=== PATIENT | female | born 1980 | race African-American/Black ===

== ENCOUNTER 2023-09-17 06:45 | Inpatient (IN) | payer BC, SELFPAY ==
[2023-09-17] VITALS (38 sets, daily range): BP systolic 65–118; BP diastolic 30–101; BMI 24.6; BMI 22.7
--- NOTE | 2023-09-17 05:47 | ED.GENMED ---
History of Present Illness
General
Chief Complaint: Fainting/Passed Out
Source: patient and ambulance crew
Exam Limitations: none
Time Seen by Provider: 09/17/23 05:26
Travel History
Have you had any contact with someone who has COVID-19?: No
Do you have any symptoms of coronavirus? Fever > 100 degrees, chills, cough, shortness of breath, sore throat, loss of taste or smell, muscle aches, or headache?: No
History of Present Illness
History of Present Illness:
43-year-old female with a history of lung cancer and idiopathic pulmonary hypertension who presents after she was noted to be hypotensive at home. Patient states that she takes her Remodulin every 72 hours via pump. He states that she suspects her
last dose the tubing was broken and she did not get a full dose. She is then supposed to titrate up but took her regular dose today and feels like she is titrating up and her symptoms are related. She has had diarrhea and hypotension. She also
had nausea which all are consistent with her symptoms related to taking her Remodulin. Patient denies chest pain, denies fevers, denies hemoptysis, denies leg swelling. She states she does not feel terribly short of breath
Past History
Past History
ED Past Medical History: Cancer (Lung cancer) and Other (Seasonal allergies, dextrocardia, idiopathic pulmonary hypertension)
ED Past Surgical History: Other (Right pneumonectomy October 2012)
Social History
Tobacco: Non-smoker
Alcohol: None
Drug: None
Personal:
Living: with family
Employment: Employed
Family History
Family History: Hypertension
Phy Exam
Physical Exam
Physical Exam:
CONSTITUTIONAL Patient alert and oriented to person, place and time.. Vital signs reviewed.
HEAD atraumatic, normocephalic.
EYES eyelids normal to inspection, Pupils equally round and reactive to light, Extraocular muscles intact, Conjunctiva normal, Sclera normal.
NECK normal range of motion, Trachea midline, mild jugular venous distention.
RESPIRATORY CHEST No respiratory distress noted, Chest expansion equal, Bilateral breath sounds clear.
CARDIOVASCULAR regular and tachycardic
ABDOMEN abdomen nontender, Bowel sounds normal. No distention.
BACK normal inspection, no obvious deformities
UPPER EXTREMITY range of motion normal, Motor strength normal, no cyanosis, no edema.
LOWER EXTREMITY range of motion normal, Motor strength normal, no cyanosis, no edema.
NEURO Speech normal, No focal motor deficits, [place] coma scale 15, Memory normal, Cranial Nerves intact to screening exam.
SKIN skin warm, dry, and normal in color.
PSYCHIATRIC patient oriented to person place and time, Normal affect.
Course
Orders/Labs/Results
Orders:
Orders
09/17/23 05:20
Electrocardiogram (*1) Urgent
Reason for Study: Other
Other Reason for Exam: Respiratory Distress
Cardiac Monitoring- Treatment ONCE
EKG- Treatment ONCE
IV Insert/Care/Rem.- Treatment PRN
O2 Therapy [RESP] Urgent
Titrate/Wean O2 to maintain O2 sat greater than (%): 93
Special Instructions: TO MAINTAIN CONTINUOUS O2 SATS >/= 93%
Pulse Ox/cont/shift [RESP] Urgent
Quantity: 1
Special Instructions: continuous pulse ox
09/17/23 05:40
COVID-19 Antigen Urgent
Source: Nasal Swab
Complete Blood Count/With Diff Urgent
Comprehensive Metabolic Panel Urgent
NT-proBNP Urgent
Troponin I Urgent
Influenza A+B Rapid Molecular Urgent
NELL Source: Nasal Swab
Specimen Description:
09/17/23 05:42
0.9% Sodium Chloride 500 ml [Nss] 500 ml IV BOLUS
Chest [CR Chest - 2 Views ] Stat
Comment:
Reason For Exam: sob
09/17/23 06:05
Urinalysis Reflex To Culture Urgent
09/17/23 06:10
Lactic Acid Q4H
Comment: CANCEL 2nd LACTIC ACID IF 1st LACTIC ACID IS LESS THAN 2
Blood Culture Q30M
NELL Source: Blood/Venous
Specimen Description:
Blood Culture Q30M
NELL Source: Blood/Venous
Specimen Description:
09/17/23 06:12
0.9% Sodium Chloride 1000 ml [Nss] 1,000 ml IV BOLUS
09/17/23 06:13
Potassium Chloride [KCl] 40 meq Dextrose 5%/Water 250 ml [D5w] 250 ml IV NOW
09/17/23 06:29
Admit/Transfer Patient As Directed
Co-Sign Provider:
Level of Care: Inpatient admission
Assign to:: ICU
Physician / Group: emiry
Diagnosis: Acute viral Covid /JAMES/ SIRS picture eval for sespis/ Hypokalemia/ N/D
Reason for Hospitalization: Acute viral Covid /JAMES/ SIRS picture eval for sespis/ Hypokalemia/ N/D
Expected length of stay greater than two midnights?: Yes
ELOS- Estimated Length of Stay in days: 5
I certify the patient meets the requirements for IP care: Yes
09/17/23 06:32
Code Status As Directed
Resuscitation Status: Full Code
09/17/23 07:00
Potassium Chloride [KCl] 40 meq Dextrose 5%/Water 250 ml [D5w] 250 ml IV ONCE
09/17/23 10:15
Lactic Acid Q4H
Comment: CANCEL 2nd LACTIC ACID IF 1st LACTIC ACID IS LESS THAN 2
Abnormal Lab Results
09/17/23
05:40
WBC 14.4 H 10^3/uL
(4.8-10.8)
RBC 3.79 L 10^6/uL
(4.20-5.40)
Hct 35.4 L %
(37.0-47.0)
MCH 33.2 H pg
(27.0-31.0)
RDW 14.7 H %
(11.5-14.5)
Plt Count 113 L 10^3/uL
(130-400)
MPV 11.7 H fL
(7.4-10.4)
Abs Immat Gran (auto) 0.1 H 10^3/uL
(0-0.05)
Absolute Neuts (auto) 12.9 H 10^3/uL
(1.4-6.5)
Absolute Lymphs (auto) 0.6 L 10^3/uL
(1.2-3.4)
Absolute Monos (auto) 0.7 H 10^3/uL
(0.1-0.6)
Neutrophils % 89.9 H %
(42.2-75.2)
Lymphocytes % 4.5 L %
(20.5-51.1)
Sodium 130 L mmol/L
(135-145)
Potassium 3.3 L mmol/L
(3.5-5.1)
Carbon Dioxide 16 L mmol/L
(22-30)
BUN 56 H mg/dl
(7-17)
Creatinine 2.9 H mg/dL
(0.6-1.0)
Glucose 122 H mg/dl
(70-99)
Calcium 8.1 L mg/dl
(8.4-10.2)
Total Bilirubin 6.8 H mg/dl
(0.2-1.3)
Total Protein 6.1 L g/dl
(6.3-8.2)
SARS-CoV-2 Antigen Positive A
(Negative)
09/17/23 05:40
09/17/23 05:40
Vital Signs
Initial and Last Documented VS:
Initial Vital Signs
BP
118/101
09/17/23 05:17
Last Documented Vital Signs
Temp Pulse Resp BP Pulse Ox
97.2 F 114 32 91/60 96
09/17/23 06:10 09/17/23 06:30 09/17/23 06:30 09/17/23 06:30 09/17/23 06:30
MDM/Problems Addressed
MDM/Problems Addressed:
Pulmonary hypertension, Remodulin use, COVID 19, acute renal failure
Acute Exacerbation and/or Progression of Chronic Illness: Other (pulm HTN)
*Pulse Oximetry
Patient hypoxic: no
*EKG
Interpreted by ED Provider?: Yes
Interpretation: abnormal
Rate: tachycardiac
Rhythm: sinus
Ischemia: non-specific ST changes
*Wire Winding Machine Tender Interpretation
Rate: tachycardiac
Interpretation: abnormal
Rhythm: sinus
*Critical Care Note
Total Time (30-74mins, 75-104mins- exclusive of procedures): 40 minutes
Data Reviewed
Review of Other/Old Records Reveals: Progress Notes (2016 cardiology notes reviewed) and Discharge Summary (2016 discharge summary reviewed)
Source: patient and ambulance crew
Further Testing Considered But Not Given:
Consider CTA but suspect result of Remodulin use. Continue to monitor. Check chest x-ray
Patient Management
Discussion with other providers: Rn Perioperative (pulmonology)
Escalation/DeEscalation of care consider admission/obs:
Patient is quite ill-appearing. Tachypneic. Chest x-ray to my view appears to have some interstitial changes that may be COVID versus volume. BNP noted. Blood pressure now 90s but has been a little bit hypotensive likely related to Remodulin.
Case discussed with pulmonary critical care. Agrees with management thus far. Hospitalist to cover with antibiotics. Trial high flow. Pulmonology to evaluate. renal failure appears acute
ED Attending Note
-
Portions of this chart may have been created with voice recognition software.� Occasional wrong word or��sound alike� substitutions may have occurred due to the inherent limitations of voice recognition software.
Discharge Plan
Departure
Patient Disposition: Admit
Date of Disposition: 09/17/23
Time of Disposition: 06:43
Admit to: ICU
Presentation/result/management discussed w/ accepting MD/DO: Hospitalist
Discharge Problem:
Acute renal failure, COVID-19, Pulmonary hypertension, Acute hypotension
Prescriptions:
No Action
alprazolam 0.25 MG tablet
0.25 mg PO Q6HPRN PRN (Reason: ANXIETY) Qty: 10 0RF
pantoprazole 40 MG tablet,delayed release (DR/EC)
40 mg PO DAILY Qty: 30 0RF
oseltamivir 75 MG capsule
75 mg PO BID Qty: 2 0RF
ipratropium bromide 0.5 MG/2.5 ML solution
0.5 mg inhalation R Q4HPRN PRN (Reason: SHORTNESS OF BREATH/WHEEZING) Qty: 30 0RF
L.acid,para-B.bifidum-S.therm [RisaQuad] 1 CAP capsule
1 cap PO DAILY Qty: 30 0RF
prednisone 10 MG tablet
10 mg PO .TAPER Qty: 22 0RF
Rx Instructions:
Take 40mg daily x1days, 30mg daily x3days, 20mg daily x3days, 10mg daily x3days.
doxycycline hyclate 100 MG capsule
100 mg PO Q12 Qty: 10 0RF
cefuroxime axetil 500 MG tablet
500 mg PO BID Qty: 10 0RF
Referrals:
UNKNOWN - PT NOT,INTERVIEWE [Unknown Provider] -
Interventions
Interventions:
*Risk Screen - Suicide Last Done: 09/17/23 05:20
*General Assessment Last Done: 09/17/23 05:20
*Neglect/Abuse Screening Last Done: 09/17/23 05:20
ED- Fall Risk Assessment Last Done: 09/17/23 05:46
ED- Cardiac Assessment Last Done: 09/17/23 05:46
ED- Neurological Assessment Last Done: 09/17/23 05:46
[2023-09-17] MEDS: NSS 500 IV (05:49)
[2023-09-17 05:54] LABS: % Basophils 0.1 % (0-2); % Immature Granulocytes 0.5 % (0-0.5); % Lymphocytes 4.5 % (20.5-51.1); % Neutrophils 89.9 % (42.2-75.2); Absolute Immature Granulocytes 0.1 10^3/uL (0-0.05); Absolute Lymphocytes 0.6 10^3/uL (1.2-3.4); Absolute Monocytes 0.7 10^3/uL (0.1-0.6); Absolute Neutrophils 12.9 10^3/uL (1.4-6.5); Hematocrit 35.4 % (37.0-47.0); Hemoglobin 12.6 g/dL (12.0-16.0); Mean Corp Hgb Conc. 35.6 g/dL (33.0-37.0); Mean Corpuscular Hgb 33.2 pg (27.0-31.0); Mean Corpuscular Volume 93.4 fL (81.0-99.0); Mean Platelet Volume 11.7 fL (7.4-10.4); Nucleated Red Blood Cells % 0.6 %; Platelet Count 113 10^3/uL (130-400); Red Blood Cell Count 3.79 10^6/uL (4.20-5.40); Red Cell Dist. Width 14.7 % (11.5-14.5); White Blood Cell Count 14.4 10^3/uL (4.8-10.8)
[2023-09-17 06:02] LABS: Albumin 3.5 g/dl (3.5-5.0); Alkaline Phosphatase 113 U/L (38-126); Blood Urea Nitrogen 56 mg/dl (7-17); Calcium 8.1 mg/dl (8.4-10.2); Carbon Dioxide 16 mmol/L (22-30); Chloride 98 mmol/L (98-107); Estimated Creatinine Clearance 17 ml/min; Glucose 122 mg/dl (70-99); Potassium 3.3 mmol/L (3.5-5.1); Sodium 130 mmol/L (135-145); Total Bilirubin 6.8 mg/dl (0.2-1.3); Total Protein 6.1 g/dl (6.3-8.2); eGFR 19.73
[2023-09-17 06:06] LABS: COVID-19 Antigen Positive (Negative)
[2023-09-17 06:14] LABS: NT-proBNP 9650 pg/ml; Troponin I < 0.012 ng/ml
--- NOTE | 2023-09-17 06:25 | HPS.HSE ---
Addendum entered and electronically signed by Shoaib Trotter MD 09/17/23 18:51:
Correction:
SIRS like picture - evolving sepsis with shock
- BCx
- Empiric Vanco and <del>Zosyn</del> Cefepime
Addendum entered and electronically signed by Shoaib Trotter MD 09/17/23 12:01:
CXR final report
- Stable pneumonectomy change in the right hemithorax.
- Progressing pulmonary edema and/or interstitial pneumonitis in the left lung. Improvement in confluent left lower lobe pneumonia.
Original Note:
Family Physician
-
Family Physician:
Chief Complaint
-
Low BP at home
History of Present Illness
43F HX lung cancer and idiopathic pulmonary hypertensionevalaution for hypotensive at home.
Patient states that she takes her Remodulin every 72 hours via pump. He states that she suspects her last dose the tubing was broken and she did not get a full dose. She is then supposed to titrate up but took her regular dose today and feels like
she is titrating up and her symptoms are related. She has had diarrhea and hypotension. She also had nausea which all are consistent with her symptoms related to taking her Remodulin.
ROS
Patient denies chest pain, denies fevers, denies hemoptysis, denies leg swelling. She states she does not feel terribly short of breath
Medical History
Past Medical History
Past Medical History: Reports Other
Additional Past Medical History:
Cancer (Lung cancer) and Other (Seasonal allergies, dextrocardia, idiopathic pulmonary hypertension)
Past Surgical History: Reports Other
Additional Past Surgical History:
Right pneumonectomy October 2012)
Social History
Tobacco: Non-smoker
Alcohol: None
Drug: None
Personal:
Living: With Family
Family History
Family History: Not pertinent
Allergies / Home Medications
Allergies reflects when Allergies were last updated in [employer].
Home Medications with original date entered in [employer]
Allergy/Medication List:
Allergies
Allergy/AdvReac Type Severity Reaction Status Date / Time
ondansetron [From Zofran] Allergy Unknown Verified 09/17/23 05:38
[place] Allergy Anaphylaxis Uncoded 11/10/15 11:37
[place] Allergy Anaphylaxis Uncoded 11/10/15 11:37
Home Medications
L.acidophilus-L.paracasei-B.bifidum-S.thermophl 8 billion cell capsule (RisaQuad) 1 cap PO DAILY ##30 11/14/15
alprazolam 0.25 mg tablet 0.25 mg PO Q6HPRN PRN ANXIETY ##10 11/14/15
cefuroxime axetil 500 mg tablet 500 mg PO BID #10 tabs 11/14/15
doxycycline hyclate 100 mg capsule 100 mg PO Q12 #10 caps 11/14/15
ipratropium bromide 0.02 % solution for inhalation 0.5 mg (2.5 mL) inhalation R Q4HPRN PRN SHORTNESS OF BREATH/WHEEZING ##30 11/14/15
oseltamivir 75 mg capsule 75 mg PO BID ##2 11/14/15
pantoprazole 40 mg tablet,delayed release 40 mg PO DAILY ##30 11/14/15
prednisone 10 mg tablet 10 mg PO .TAPER #22 tabs 11/14/15
Review of Systems
-
Constitutional: Reports See HPI
EENT: Reports No Symptoms
Respiratory: Reports See HPI
Cardiac: Reports No Symptoms
Abdomen/GI: Reports No Symptoms
: Reports No Symptoms
Musculoskeletal: Reports No Symptoms
Skin: Reports No Symptoms
Neurological: Reports No Symptoms
Endocrine: Reports No Symptoms
Hematologic/Lymphatic: Reports No Symptoms
Psych: Reports No Symptoms
Physical Exam
Vital Signs
Vital Signs
Temp Pulse Resp BP Pulse Ox
97.2 F 114 28 72/42 94
09/17/23 06:10 09/17/23 06:01 09/17/23 06:01 09/17/23 06:01 09/17/23 06:01
Physical Exam
General: Other (see below )
Laboratory Results
-
09/17/23 05:40
09/17/23 05:40
Laboratory Results
Total Bilirubin 6.8 mg/dl (0.2-1.3) H 09/17/23 05:40
Alkaline Phosphatase 113 U/L (38-126) 09/17/23 05:40
Troponin I < 0.012 ng/ml 09/17/23 05:40
Data Reviewed
-
Diagnostic Radiology: Other (pending )
Lab Data: Labs Reviewed by me
Impression/Plan
-
Reviewed VS: afebrile ST 115 BP 75/40 RR 28 POx 92- 94 0n RA
PE
Gen: Not toxic
HEENT: anicteric
Neck: supple
Lungs: No respiratory distress noted, Chest expansion equal, Bilateral breath sounds clear.
Cor: RRR S1 S2
Abdomen: soft and benign
[employer] TRUCK DRIVER: AAO3 NFND
MS: no edema
Psych: appropriate
Data
WCC 14s
Plt 113
Na 130
K 3.3
CO2 16
BUN 56
Cr 2.9 lastt Cr was 0.7 in 2016
Pending LA
POS Covid
Pending CXR
EKG
SINUS TACHYCARDIA
LATERAL INFARCT , AGE UNDETERMINED
ST and T WAVE ABNORMALITY, CONSIDER INFERIOR ISCHEMIA
ST and T WAVE ABNORMALITY, CONSIDER ANTERIOR ISCHEMIA
ABNORMAL ECG
WHEN COMPARED WITH ECG OF 14-NOV-2015 16:01,
VENT. RATE HAS INCREASED BY 37 BPM
LATERAL INFARCT IS NOW PRESENT
T WAVE INVERSION NOW EVIDENT IN INFERIOR LEADS
T WAVE INVERSION NOW EVIDENT IN ANTEROLATERAL LEADS
Last hospitalist admission: no recent hospitalist admission
ASSESSMENT & PLAN
Pending CXR
Pending Rx reconciliation
Acute viral Covid infection - onset is uncertain
Associated mild Hypoxic RI
Associated SIRs picture
- pending CXR
- Empiric Decadron
- O2
- supportive care
- ID consult
JAMES
Hypotensive - dehydration 2/2 acute GE like illness ( ADES of Remulin vs acute viral illnes )
Hypokalemia 2/2 GI loss s/p IV KCL 40 + PO KCL
- IVF
- IV KCL ashley
- Trend Cr
- Renal consult
SIRS likel picture - evolving sepsis with shock
- BCx
- Empiric Vanco and Zosyn
- LR IVF
- Toolmaker Helper consult
HX lung cancer
HX idiopathic pulmonary hypertension
Total Critical Care Time__35___ minutes. I was immediately available to the patient and staff. I personally examined, reviewed labs, diagnostic images/reports, interpretations, treatment plans, discussed patient care with other providers and
family or caregivers (if patient is unable to make decisions), entered orders as appropriate and documented the medical record.
[2023-09-17 06:29] LABS: Lactic Acid 1.6 mmol/L (0.7-2.0)
[2023-09-17] MEDS: KCL 270 MEQ IV (06:38)
[2023-09-17 06:44] LABS: ALT (SGPT) 3070 U/L (0-35); AST (SGOT) 6029 U/L (14-36)
[2023-09-17] MEDS: LEVOPHED 250 IV (08:28)
--- NOTE | 2023-09-17 08:52 | CON.GI ---
Addendum entered and electronically signed by Yazmin Gutierrez MD 09/17/23 14:16:
I saw and examined the patient.
The STREET CONTRACTOR or PA's note was reviewed and I agree with the note.
Comment: 43-year-old female past medical history of lung cancer status postpneumonectomy, pulmonary hypertension on Remodulin infusion presenting with COVID. She was hypotensive at home with diarrhea, nausea. No abdominal pain. She has remained
hypotensive here requiring pressors. She was found to have profoundly elevated LFTs with AST 6029, ALT 3070, total bilirubin 6.8, direct bilirubin 1.6, INR 3.68, platelets 113. I ordered a Doppler ultrasound this morning which showed patent
hepatic vasculature with altered pulsatility/flow may be related to chronic liver disease and right heart failure. Increased echogenicity in the liver likely fatty liver. Upper abdominal ascites. On discussion with the patient, she is on
diuretics for known ascites for her right heart failure.
Most likely, with such severe elevation of her AST and ALT this is consistent with shock liver especially in the setting of hypotension. Her bilirubin is mostly indirect consistent with hemolysis. Elevated coags also most likely related to her
underlying sepsis. I discussed at length with the on-call solution engineer at [facility] and he did say in the setting there is no role for N-acetylcysteine. He agreed there is also no role in doing a full liver workup as this is
unlikely to be some other etiology besides her underlying sepsis especially given the severity of her AST and ALT elevation.
I have discussed at length as well with Dr. Dangelo hospitalist. Due to multiorgan failure in the setting of COVID with her severe comorbidities, she is being transferred to [facility] ICU.
Original Note:
Consultation
-
Date/Time Consultation Requested: 09/17/23
Date/Time Consultation Performed: 09/17/23 @ 09:00
Requesting Provider: Dr. Dangelo
Performing Provider: RUSTY Ivy; Dr. Nishi Gutierrez
Reason for Consultation: abnormal LFT's
Medical History
Chief Complaint / HPI
Chief Complaint: low BP at home
History of Present Illness:
The patient is a 43-year-old female with a past medical history significant for lung cancer status post right pneumonectomy 2012, idiopathic pulmonary hypertension on Remodulin infusion (follows at [facility]), who presented to the emergency room with
complaints of a low blood pressure at home. We are being asked to evaluate for abnormal LFT's. The patient reports feeling generally unwell leading up to her admission. She notes that she was having episodes of nonbloody diarrhea associated with
nausea. She was also noted to have low blood pressure at home. She is on a Remodulin infusion via an indwelling pump and reported in the ER that she thought her symptoms were possibly related to her medication due to adjustments of the dosage.
She denies any abdominal pain or vomiting. She does note increased shortness of breath but denies any chest pain. She otherwise denies any dysphagia, odynophagia, melena, hematochezia, or hematemesis. She notes she does follow with [facility] for her
pulmonary hypertension. She also admits to history of lung cancer with right pneumonectomy. She denies any history of hepatitis, IV drug abuse, significant alcohol use, sick contacts, or recent travel. She does admit to history of tattoos
remotely. She has no known exposures to COVID. No pertinent family history related to her current admission. Labs on admission include WBC 14.4, hemoglobin 12.6, platelets 113,000, sodium 130, potassium 3.3, sodium HCO3 16, BUN 56, creatinine 2.9,
total bilirubin 6.8, AST 6029, ALT 3070, alk phos 113, lactic acid 1.6, BNP 9650, troponin negative x 1. COVID antigen was positive. Chest x-ray showed stable pneumonectomy changes with progressing pulmonary edema and/or interstitial pneumonitis
in the left lung. EKG showed sinus tachycardia with signs of lateral infarct age-indeterminate with ST and T wave abnormality. She was placed on supplemental oxygen and started on IV Decadron. She received fluid bolus and potassium repletion as
well and nephrology was consulted for JAMES. She has admitted for further evaluation to the ICU by pulmonary and GI. She was seen in the ICU with Dr. Protano. Noted with significant hypotension SBP 60's and tachycardia 110's. Levophed drip was
ordered. INR elevated at 3.68.
Past Medical History
Past Medical History: Cancer (Lung CA) and Other (pulmonary HTN)
Past Surgical History: Other (Right pneumonectomy October 2012)
Social History
Tobacco: Non-Smoker
Alcohol: Other (Very rare once every few months)
Drug: None
Family History
Family History: Reviewed & Not Pertinent
Allergies / Home Medications
Allergy/AdvReac Type Severity Reaction Status Date / Time
ondansetron [From Zofran] Allergy Unknown Verified 09/17/23 05:38
[place] Allergy Anaphylaxis Uncoded 11/10/15 11:37
[place] Allergy Anaphylaxis Uncoded 11/10/15 11:37
Medication Instructions Recorded
bismuth subsalicylate 262 mg 1 tab PO ONCE PRN diarrhea 09/17/23
chewable tablet (Pepto-Bismol)
ferrous sulfate 325 mg (65 mg 325 mg PO DAILY 09/17/23
iron) tablet
macitentan 10 mg tablet 10 mg PO DAILY 09/17/23
magnesium 200 mg tablet 200 mg PO DAILY 09/17/23
multivitamin 1 tab 09/17/23
potassium chloride 20 mEq 20 meq PO DAILY 09/17/23
tablet,extended release
sildenafil (pulm.hypertension) 20 20 mg PO TID 09/17/23
mg tablet
spironolactone 25 mg tablet 25 mg PO DAILY 09/17/23
torsemide 20 mg tablet 20 mg PO DAILY 09/17/23
treprostinil sodium 10 mg/mL 20 mg continuous subcutaneous 09/17/23
injection solution infusion
vehicle base no.15 (bulk) (PLO 1 applic miscellaneous TID PRN pain 09/17/23
Transdermal cream)
Review of Systems
-
History Source: Patient
Constitutional: Reports Fatigue
EENT: Reports No Symptoms
Respiratory: Reports Trouble Breathing
Cardiac: Reports No Symptoms
Abdomen/GI: Reports Nausea and Diarrhea
: Reports No Symptoms
Musculoskeletal: Reports No Symptoms
Skin: Reports No Symptoms
Neurological: Reports No Symptoms
Vital Signs
Temp Pulse Resp BP Pulse Ox
97.2 F 115 0 77/58 94
09/17/23 06:10 09/17/23 08:30 09/17/23 08:30 09/17/23 08:24 09/17/23 08:30
Physical Exam
Exam
General: Well Developed, Well Nourished, Respiratory Distress and Other (Ill-appearing, with mild increase work of breathing)
HEENT: Normocephalic, Anicteric and Atraumatic
Respiratory: Other (Overall diminished breath sounds without any wheezing, increased work of breathing)
Cardiac: S1/S2 and Regular Rhythm
Breast: Deferred by me
GI: Soft, Non Tender, Non Distended and Normal Bowel Sounds
Rectal: Deferred by Provider
Musculoskeletal: No Edema
Skin: Warm and Dry
Neuro: Awake and Alert
Psych: Calm
Results
WBC 14.4 10^3/uL (4.8-10.8) H 09/17/23 05:40
Hgb 12.6 g/dL (12.0-16.0) 09/17/23 05:40
Hct 35.4 % (37.0-47.0) L 09/17/23 05:40
MCV 93.4 fL (81.0-99.0) 09/17/23 05:40
Plt Count 113 10^3/uL (130-400) L 09/17/23 05:40
Absolute Neuts (auto) 12.9 10^3/uL (1.4-6.5) H 09/17/23 05:40
Sodium 130 mmol/L (135-145) L 09/17/23 05:40
Potassium 3.3 mmol/L (3.5-5.1) L 09/17/23 05:40
Chloride 98 mmol/L (98-107) 09/17/23 05:40
Carbon Dioxide 16 mmol/L (22-30) L 09/17/23 05:40
BUN 56 mg/dl (7-17) H 09/17/23 05:40
Creatinine 2.9 mg/dL (0.6-1.0) H 09/17/23 05:40
Calcium 8.1 mg/dl (8.4-10.2) L 09/17/23 05:40
Total Bilirubin 6.8 mg/dl (0.2-1.3) H 09/17/23 05:40
AST 6029 U/L (14-36) H* 09/17/23 05:40
ALT 3070 U/L (0-35) H* 09/17/23 05:40
Alkaline Phosphatase 113 U/L (38-126) 09/17/23 05:40
Diagnostic Image Results:
09/17/23 CXR: IMPRESSION:
Stable pneumonectomy change in the right hemithorax. Progressing pulmonary edema and/or interstitial pneumonitis in the left lung. Improvement in confluent left lower lobe pneumonia.
09/17/23 US abdomen with Doppler:
IMPRESSION:
1. Patent hepatic vasculature with some altered pulsatility/flow, as described above. Findings may be secondary to combination of chronic liver disease and right heart failure.
2. Increased echogenicity in the liver, compatible with underlying hepatocellular disease, which most commonly relates to fatty infiltration of the liver.
3. Upper abdominal ascites.
Prior GI Procedures:
EGD: none on file
Colonoscopy: none on file
Assessment / Plan
-
The patient is a 43-year-old female with a past medical history significant for lung cancer status post right pneumonectomy 2012, idiopathic pulmonary hypertension on Remodulin, who presented to the emergency room with complaints of a low blood
pressure at home. We are being asked to evaluate for abnormal LFT's. Found to be COVID-positive on admission with hypoxia. Presented with diarrhea and mild shortness of breath associated with other viral symptoms including nausea. No known
exposures. Significant lab abnormalities consistent with shock state with acute kidney injury and AST in the 6000's and ALT in the 3000's. No reported history of liver disease. She does follow at [facility] for her idiopathic pulmonary hypertension on
her module and infusion every 3 days. Significantly hypotensive and tachycardic upon arrival to the ICU. Levophed drip ordered. She does appear in moderate respiratory distress. Ultrasound with Doppler does not show any significant obstructive
process with patent hepatic vasculature.
Problem list:
-abnormal LFT's, ?shock liver
-COVID+, hypoxia
-septic shock, hypotension
-JAMES
-hx pulmonary HTN on Remodulin infusion
-hx lung CA s/p pneumonectomy 2012
-hypokalemia
-hyponatremia
-?acute CHF with elevated BNP
-elevated INR
Recommendations:
-Etiology of abnormal LFT's likely multifactorial with COVID-19 infection v shock liver v other. No obvious obstructive process or biliary etiology on US.
---Somewhat concerning with elevated INR, possibly due to shock v infection?
-Will trend LFT's and INR
-Avoid hepatotoxins. Stopped PRN Tylenol.
-Check Tylenol level
-Check hepatitis serologies
-ICU level care for shock/COVID per medical/pulmonary
-Replete electrolytes per ICU team
-Ensure adequate perfusion
-ID consult pending
-Dr. Gutierrez discussed with Dr. Dangelo regarding her current state and to consider transfer to tertiary center with her medical hx pending clinical course. She is known to [facility].
-Will follow
-
-
Thank you for consultation and allowing me to participate in the patient's care. Please call the secondary school teacher librarian GI physician during the after hours with any questions or concerns.
[2023-09-17 09:04] LABS: Direct Bilirubin 1.6 mg/dl (0.0-0.4)
--- NOTE | 2023-09-17 10:00 | PTCARENOTE ---
Received patient to room 3358. Patient is awake, slightly lethargic, arousable. AAOx3, but not to situation. Does keep asking when she can go home. Patient is dyspneic, tachypneic, has moist productive cough, keeps pulling off nasal cannula.
Patient is 92% on room air. Lung sounds absent right side, course scattered rhonchi left side. Placed patient on monitor, patient sinus tach on monitor. Patient has generalized flushed/red appearance. Skin is diaphoretic, intact. Belly is
distended, 6:10 for pain on palpation. Patient has been incontinent of bowel, has chronic diarrhea. Purewick for urination, patient has been asking to use bathroom, will keep patient on bedrest. GI has rounded to see patient upon admission, will
keep patient NPO per Dr. Gutierrez. Levophed infusing into left 20 peripheral IV at 4mcg/hr. Will review orders, sending blood work and MRSA PCR.
--- NOTE | 2023-09-17 10:07 | CON.INTV ---
Consultation
Consultation Request
Date/Time Consultation Requested: 09/17/2023955
Date/Time Consultation Performed: 09/17/2023 - 1007
Requesting Provider: Dr. Trotter
Performing Provider: Dr. Hughes
Reason for Consultation: Hypotension
Medical History
-
Chief Complaint: Low blood pressure
History of Present Illness:
43-year-old female never smoker with a past medical history of iron deficiency, and pulmonary hypertension who presents with hypotension. Patient was having hypotension 1 night APPLE PICKER with BP 70/30 but refused transport. Blood pressure remained low
so EMS was called again, and patient also having hallucinations with reported syncopal episodes. Patient also having diarrhea and tachypnea as per medics. 500 cc NS was given en route to the hospital. In the ER patient was afebrile to 97.2 �F,
pulse rate 116, BP 91/60 and patient saturating 96% on room air. Patient is drowsy in the ER and complaining of nausea and diarrhea. There is mild pulmonary vascular congestion in the left lung with no pleural effusion. Patient found to be mildly
hyponatremic, hypokalemic, low serum bicarbonate at 16, elevated creatinine 2.9, elevated LFTs with total bilirubin 6.8, AST 6029, ALT 3070, negative troponin x1 and elevated proBNP at 9650. WBC elevated to 14.4, Hb 12.6, and platelet count 113.
COVID antigen is positive. She was given 500 cc bolus of NS 0.9% and admitted to the hospitalist service. Additional fluids were ordered with LR at 100 mL/hr, Decadron also ordered in addition to antibiotics with cefepime/vancomycin. Due to
patient's hypotension she was started on Levophed and transferred to ICU for admission. Critical care services consulted for additional management/recommendations.
When I saw the pt she was in bed, confused at times, on room air with sats 93%, SBP was 105, HR 110, and she said she was SOB. She has diarrhea and flushing that she says is from her remodulin. Her remodulin dose is at 20mcg/hr, and she controls
it via a remote control and the infusion is going into her right proximal thigh. She says her diarrhea is at baseline. She denies ALLEN, CP, abd pain, f/c. She has a occasional cough.
PMHx: Pulmonary hypertension, history of lung cancer, iron deficiency anemia
PSHx: LASIK eye surgery; right pneumonectomy
Past Medical History
Past Medical History: Other (Above as per HPI)
Past Surgical History: Other (Above as per HPI)
Social History
Tobacco: Non-smoker
Alcohol: None
Drug: None
Family History
Family History: Reviewed & Not Pertinent
Allergies / Home Medications
Allergies
Allergy/AdvReac Type Severity Reaction Status Date / Time
ondansetron [From Zofran] Allergy Unknown Verified 09/17/23 05:38
[place] Allergy Anaphylaxis Uncoded 11/10/15 11:37
[place] Allergy Anaphylaxis Uncoded 11/10/15 11:37
Home Medications
Medication Instructions Recorded Confirmed Last Taken Type
bismuth subsalicylate 262 mg 1 tab PO ONCE PRN diarrhea 09/17/23 09/17/23 Unknown History
chewable tablet (Pepto-Bismol)
ferrous sulfate 325 mg (65 mg 325 mg PO DAILY 09/17/23 09/17/23 Unknown History
iron) tablet
macitentan 10 mg tablet 10 mg PO DAILY 09/17/23 09/17/23 Unknown History
magnesium 200 mg tablet 200 mg PO DAILY 09/17/23 09/17/23 Unknown History
multivitamin 1 tab 09/17/23 Unknown History
potassium chloride 20 mEq 20 meq PO DAILY 09/17/23 09/17/23 Unknown History
tablet,extended release
sildenafil (pulm.hypertension) 20 20 mg PO TID 09/17/23 09/17/23 Unknown History
mg tablet
spironolactone 25 mg tablet 25 mg PO DAILY 09/17/23 09/17/23 Unknown History
torsemide 20 mg tablet 20 mg PO DAILY 09/17/23 09/17/23 Unknown History
treprostinil sodium 10 mg/mL 20 mg continuous subcutaneous 09/17/23 Unknown History
injection solution infusion
vehicle base no.15 (bulk) (PLO 1 applic miscellaneous TID PRN pain 09/17/23 09/17/23 Unknown History
Transdermal cream)
Review of Systems
-
History Source: Patient
All other systems: Negative unless noted (12 point ROS performed and is negative unless mentioned above.)
Vitals / Labs / Diagnostic Testing
Vital Signs
Temp Pulse Resp BP Pulse Ox
97.2 F 116 35 69/57 92
09/17/23 06:10 09/17/23 09:30 09/17/23 09:00 09/17/23 09:33 09/17/23 09:33
Lab Data
09/17/23 05:40
09/17/23 05:40
Microbiology
09/17/23 05:40 Nasal Swab Influenza Types A & B (LINDA) - Final
Negative for Influenza A & B, NAAT
Negative results must be combined with clinical observations
and patient history.
Nucleic Acid Amplification test (NAAT)performed on the
[employer] ID NOW platform.
Diagnostic Testing:
Physical Exam
-
HEENT: Normocephalic, Anicteric and Other (Flushed)
Cardiovascular: Peripheral Edema (negative) and Other (tachycardic)
Respiratory: Wheeze (bilateral during expiration), Rales (Negative), Rhonchi (Negative) and Accessory Resp Muscle Use (mild)
GI: Soft, Non Distended and Non Tender
Neurology: Awake and Alert
Skin: Warm and Dry
General: Pain (negative) and Chills (Negative)
Assessment
-
Assessment: 43-year-old female never smoker with a PMHx of iron deficiency, Hx of lung cancer s/p right pneumonectomy and pulmonary hypertension on remodulin infusion who presents with hypotension, started on IV fluids, found to be tachycardic and
labs shows multiple electrolyte derangements with transaminitis and COVID-19 positive. Antibiotics, Decadron and vasopressors started and patient admitted to the ICU. Critical care services consulted for additional management/recommendations.
Chronic conditions APPLE PICKER: Pulmonary hypertension, history of lung cancer, iron deficiency anemia
Impression:
#Shock -suspected to be multifactorial in setting of covid-19 + sepsis + hypovolemia in setting of chronic diarrhea
#Hallucinations - occurred APPLE PICKER
#Reported syncopal episodes -likely due to hypotension
#Acute kidney injury
#Hyponatremia, hypokalemia
#Metabolic acidosis with increased anion gap
#Transaminitis - likely shock liver in setting of hepatic congestion from chronic right heart failure
#COVID-19 positive
#Thrombocytopenia
#Coagulopathy - suspect acute liver failure in setting of covid-19 and sepsis with suspected chronic liver disease from hepatic congestion 2/2 chronic right heart failure
#Pulmonary hypertension (WHO Group I suspected as pt on remodulin pump)
Plan:
- Continue vasopressors and maintain MAP>65
- Considering patient is hypoxic with faint interstitial opacities seen on CXR, this is consistent with covid-19 pneumonia. Would Tx with decadron 6mg daily; unable to use remdesivir in setting of liver inflammation
- Trend coags, LFTs, LD, GGT
- Check viral hepatitis panel
- If hypotension worsens then will reduce dose of treprostinil given severe hepatic impairment as this increases systemic exposure and can worsen/cause hypotension - can lower dose by 10-15%
- Replete K>4, Mg>2
- Check 2D-echo
- Maintain euglycemia with goal BG 140-180
- Trend serum HCO3 and check blood gas to assure pH now low - goal pH 7.35 - 7.45
- Renally dose all meds; avoid hepatotoxic medications
- neurochecks considering pt was having hallucinations
- Trend serum Na with goal 135-145
- Continue supplemental O2 to keep SpO2 >90-94%
- Start nebulized bronchodilators given she is wheezing on exam and SOB
- Empirically give ABx (vanc/cefepime) but if infectious workup unrevealing and pt remains afebrile, then would give short course (i.e. 5 days)
- Check MRSA swab and if negative then DC IV vanco
- Follow up blood Cx and check urine antigens for Legionella, strep pneumo, and check respiratory culture
- DVT ppx - hold off on chemical ppx given the INR is >3.5
Critical care statement: A total of 40 minutes of critical care time was provided for this patient today. This includes management of unstable vital signs, evaluation of the patient at bedside, reviewing the patient's pertinent medical records
including radiographs, microbiology, laboratory evaluations, and discussion with primary team, consultants, pharmacy, nutrition, physical therapy, case management, charge nurse, critical care nursing, and respiratory therapy.
Data:
CXR 09-17-2023:
Stable pneumonectomy change in the right hemithorax.
Progressing pulmonary edema and/or interstitial pneumonitis in the left lung. Improvement in confluent left lower lobe pneumonia.
Abdominal US with Doppler 09-17-2023:
1. Patent hepatic vasculature with some altered pulsatility/flow, as described above. Findings may be secondary to combination of chronic liver disease and right heart failure.
2. Increased echogenicity in the liver, compatible with underlying hepatocellular disease, which most commonly relates to fatty infiltration of the liver.
3. Upper abdominal ascites.
[2023-09-17 10:08] LABS: INR 3.68; PT 36.6 Sec (11.4-14.6)
[2023-09-17] MEDS: NSS 1000 IV (10:47)
--- NOTE | 2023-09-17 11:12 | PHA.VAN.IN ---
Assessment
- Assessment
Renal Function: Appears elevated from baseline (last time in hospital 2016 was 0.7)
Maximum Temperature: 98.7 on 09/17/23 at 05:26
Minimum Temperature: 97.2 on 09/17/23 at 06:10
Concomitant Antimicrobials: Cefepime
Plan
- Plan
Initial / Loading Dose: Vancomycin 1250mg x 1 scheduled for 12 noon today
Maintenance Regimen: Dose by levels
Monitoring: Random Vancomycin level ordered for 09/18/23 at 06:00
Pharmacokinetics Vancomycin I
- -
Patient Age: 43
Patient Sex: Female
Vancomycin Day #: 1
Indication: Pulmonary/Respiratory
Requesting Provider: Dr Trotter
Pertinent Antimicrobial Allergies:
No antibiotic allergies
Height / Weight:
Height 4 ft 11 in
Actual Weight 50.9 kg
IBW in k.2
Adjusted BW in k.3
Pertinent Past Medical History: lung cancer, Pulmonary hypertension
- Vital Signs / Lab Results
Temp Pulse Resp BP Pulse Ox
97.2 F 116 35 69/57 92
09/17/23 06:10 09/17/23 09:30 09/17/23 09:00 09/17/23 09:33 09/17/23 09:33
Lab Results - Hematology
09/17/23
05:40
WBC 14.4 H
Lab Results - Chemistry
09/17/23 09/17/23
05:40 10:21
BUN 56 H
Creatinine 2.9 H
Estimated Creat Clear 17
Albumin 3.5 Cancelled
09/17/23
06:10
Lactic Acid 1.6
Microbiology Results
09/17/23 05:40 Influenza Types A & B (LINDA) - Final
Nasal Swab Negative for Influenza A & B, NAAT
Negative results must be combined with clinical observations
and patient history.
Nucleic Acid Amplification test (NAAT)performed on the
[employer] ID NOW platform.
[2023-09-17] MEDS: STERILE WATER FOR INJECTION 10 ML IV (11:30)
[2023-09-17] MEDS: DECADRON 6 MG IV (11:30)
[2023-09-17] MEDS: MAXIPIME 1000 MG IV (11:31)
[2023-09-17 11:48] LABS: Lactic Acid 2.1 mmol/L (0.7-2.0)
[2023-09-17 12:35] LABS: Magnesium 1.7 mg/dl (1.6-2.3); Phosphorus 5.9 mg/dl (2.5-4.5)
--- NOTE | 2023-09-17 12:41 | CON.ID ---
Consultation
-
Date/Time Consultation Requested: 09/17/2023 0956
Date/Time Consultation Performed: 09/17/2023 1215
Requesting Provider: Dr. Trotter
Performing Provider: Dr. Islas
Reason for Consultation: Septic shock; Covid-19
Chief Complaint / Past History
History of Present Illness
Michelet Alarcon is a 43-year-old female being evaluated at the request of Dr. Trotter in regards to septic shock. History is obtained from chart review, along with patient interview.
The patient is currently receiving remodulin q72h via pump. She presents to [facility] early this morning after she was found to be hypotensive at home. She believes that her her tubing may have been broken and she did not get a full dose.
Today she took her regular dose and she believes that some of her symptoms may be related to titrating up on that dose. She reports diarrhea and hypotension, along with nausea. She denies any fevers or chest pain. Testing in the ER for COVID-19
was shown to be positive. Infectious Diseases is asked to comment upon further antimicrobial therapy.
She reports that she is vaccinated and boosted against COVID-19. She notes no sick contacts. No history of recent travel. At present she reports cough, but no significant sputum production. She denies any chest pain.
Past History
Additional Past Medical History:
Lung cancer
Dextrocardia
Idiopathic pulmonary hypertension
Additional Past Surgical History:
Right pneumonectomy (2012)
Allergy History:
ondansetron [From Zofran] Allergy (Verified 09/17/23 05:38)
Unknown
Nuts Allergy (Uncoded 11/10/15 11:37)
Anaphylaxis
[place] Allergy (Uncoded 11/10/15 11:37)
Anaphylaxis
Medications Reviewed: Yes
Current Antibiotics:
Cefepime 1 g every 12 hours
Vancomycin (dosed per pharmacy
Social History
Tobacco: Non-Smoker
Alcohol: Occasional
Drug: None
Personal:
Living: With Family
Employment: Employed
Family History
Family History: Not Pertinent
Review of Systems
Vital Signs
Temp Pulse Resp BP Pulse Ox
96.3 F L 116 35 69/57 92
09/17/23 12:00 09/17/23 09:30 09/17/23 09:00 09/17/23 09:33 09/17/23 09:33
Physical Exam
Physical Exam
Constitutional: No Acute Distress, Comfortable, Acutely Ill and Non-toxic
Eyes: No Conjunctival Hemorrhage and Sclera Anicteric
Oral: No Thrush and No Ulcers
Cardiovascular: Regular Rate and S1/S2; Negative S3/S4
Pulmonary: Wheezes, Coarse and Other (Mildly labored.)
Gastrointestinal: Soft, Non Tender, Non Distended and Normal Bowel Sounds
Neurological: Awake, Alert and Oriented
Psychological: Calm
Lab / Diagnostic Study Results
09/17/23 05:40
09/17/23 05:40
Abs Immat Gran (auto) 0.1 10^3/uL (0-0.05) H 09/17/23 05:40
Absolute Neuts (auto) 12.9 10^3/uL (1.4-6.5) H 09/17/23 05:40
Absolute Lymphs (auto) 0.6 10^3/uL (1.2-3.4) L 09/17/23 05:40
Absolute Monos (auto) 0.7 10^3/uL (0.1-0.6) H 09/17/23 05:40
Absolute Basos (auto) 0.0 10^3/uL (0-0.2) 09/17/23 05:40
Immature Gran % 0.5 % (0-0.5) 09/17/23 05:40
Neutrophils % 89.9 % (42.2-75.2) H 09/17/23 05:40
Lymphocytes % 4.5 % (20.5-51.1) L 09/17/23 05:40
Monocytes % 5.0 % (1.7-9.3) 09/17/23 05:40
Eosinophils % 0.0 % (0-6) 09/17/23 05:40
Basophils % 0.1 % (0-2) 09/17/23 05:40
PT 36.6 Sec (11.4-14.6) H 09/17/23 08:53
INR 3.68 09/17/23 08:53
Lactic Acid 2.1 mmol/L (0.7-2.0) H 09/17/23 11:15
Microbiology Results
Micro:
09/17/23 11:52 Nasal Screen MRSA (PCR) - Pending
Nose
09/17/23 11:52 Blood Culture - Pending
Blood/Venous
09/17/23 11:15 Blood Culture - Pending
Blood/Venous
09/17/23 06:10 Blood Culture - Pending
Blood/Venous
09/17/23 06:10 Blood Culture - Pending
Blood/Venous
09/17/23 05:40 Influenza Types A & B (LINDA) - Final
Nasal Swab Negative for Influenza A & B, NAAT
Negative results must be combined with clinical observations
and patient history.
Nucleic Acid Amplification test (NAAT)performed on the
[employer] platform.
Laboratory Tests
09/17/23
05:40
SARS-CoV-2 Antigen Positive A
Assessment / Plan
Shortness of breath
Leukocytosis
COVID-19 positive.
Idiopathic pulmonary hypertension with possible treatment interruption
Renal insufficiency (current CrCl approximately 17)
Lactic acidosis
Hx Lung cancer (2012; s/p right pneumonectomy)
Dextrocardia
Recommendations:
Continue with empiric vancomycin and cefepime for the present.
Discussed with patient therapy options for COVID-19. At present, I have recommended the initiation of molnupiravir, which she has agreed to.
Monitor Vanco levels.
Monitor O2 saturations.
Follow creatinine and creatinine clearance for antibiotic dose modification.
Follow white count and temperature curve.
Patient currently critically ill in intensive care unit.
Care Review
Plan reviewed with: Physician (Critical Care)
--- NOTE | 2023-09-17 12:50 | W.CON.NEPH ---
Consultation
-
Date/Time Consultation Requested: 09/17 9:56AM
Date/Time Consultation Performed: 09/17 12:50PM
Requesting Provider: Milton Presley
Performing Provider: Ana M Moctezuma
Reason for Consultation: hyponatremia, JAMES
Medical History
-
Chief Complaint: JAMES
History of Present Illness:
Ms. Arguelles is a 43YOF with PMH of lung cancer, pHTN (on remodulin), anemia who presents to the hospital for worsening fatigue and was noted to be significantly hypotensive. Patient was confused at the time of my visit so history is obtained from
chart review. Briefly, it seems that the patient was having hypotension at home, EMS was called by patient was refusing transport. She again had episodes of hypotension with hallucinations and syncopal episdoes so EMS was called again. According to
medics, patient was having tachycardia and diarrhea (although patient denying at this time). Patient was given multiple boluses in the ER. She was noted to be afebrile, tachycardic and hypotensive. Patient was drowsy in ER and again on my interview.
Labs notable for significant JAMES, hypokalemia, acidosis and hyponaremia. Patient was admitted for further management. Patient was started on pressor support for persistent hypotension. Of note, patient was diagnosed with pHTN in 2017 and has been on
remodulin. She states that she has been having some difficulty with medication administration at home (?? unclear if this is patient confusion or reality).
Past Medical History
lung cancer
pHTN
PRISCILA
Past Medical History: Cancer
Past Surgical History: Other (R pneumonectomy)
Social History
Tobacco: Non-Smoker
Alcohol: None
Drug: None
Family History
Family History: Not Pertinent
Allergies / Home Medications
Allergy/AdvReac Type Severity Reaction Status Date / Time
ondansetron [From Zofran] Allergy Unknown Verified 09/17/23 05:38
Nuts Allergy Anaphylaxis Uncoded 11/10/15 11:37
Fields Allergy Anaphylaxis Uncoded 11/10/15 11:37
Medication Instructions Recorded Confirmed Type
bismuth subsalicylate 262 mg 1 tab PO ONCE PRN diarrhea 09/17/23 09/17/23 History
chewable tablet (Pepto-Bismol)
ferrous sulfate 325 mg (65 mg 325 mg PO DAILY Supplement 09/17/23 09/17/23 History
iron) tablet
lorazepam 0.5 mg tablet 0.5 mg PO HS PRN anxiety 09/17/23 09/17/23 History
macitentan 10 mg tablet 10 mg PO DAILY pulmonary arterty 09/17/23 09/17/23 History
hypertension
magnesium 200 mg tablet 200 mg PO DAILY Electrolyte 09/17/23 09/17/23 History
Repletion
multivitamin 1 tab PO DAILY Supplement 09/17/23 09/17/23 History
potassium chloride 20 mEq 20 meq PO DAILY Electrolyte 09/17/23 09/17/23 History
tablet,extended release Repletion
sildenafil (pulm.hypertension) 20 20 mg PO TID pulmonary arterty 09/17/23 09/17/23 History
mg tablet hypertension
spironolactone 25 mg tablet 25 mg PO DAILY Fluid 09/17/23 09/17/23 History
Retention/Swelling
torsemide 20 mg tablet 20 mg PO DAILY Fluid 09/17/23 09/17/23 History
Retention/Swelling
treprostinil sodium 10 mg/mL 20 mg continuous subcutaneous 09/17/23 History
injection solution infusion pulmonary arterty
hypertension
vehicle base no.15 (bulk) (PLO 1 applic miscellaneous TID PRN pain 09/17/23 09/17/23 History
Transdermal cream)
Review of Systems
-
Unable to obtain full review of systems at this time due to: Other
History Source: Physician
All other systems: Negative unless noted
Constitutional: Fatigue
EENT: No Symptoms
Respiratory: Cough and Trouble Breathing
Cardiac: Palpitations
Abdomen/GI: Diarrhea
: Dark Urine
Musculoskeletal: No Symptoms
Skin: No Symptoms
Neurological: Weakness
Endocrine: No Symptoms
Hematologic/Lymphatic: No Symptoms
Physical Exam
Vital Signs
Vital Signs
Temp Pulse Resp BP Pulse Ox
96.3 F L 116 35 69/57 92
09/17/23 12:00 09/17/23 09:30 09/17/23 09:00 09/17/23 09:33 09/17/23 09:33
Lab Results
WBC 14.4 10^3/uL (4.8-10.8) H 09/17/23 05:40
RBC 3.79 10^6/uL (4.20-5.40) L 09/17/23 05:40
Hgb 12.6 g/dL (12.0-16.0) 09/17/23 05:40
Hct 35.4 % (37.0-47.0) L 09/17/23 05:40
Plt Count 113 10^3/uL (130-400) L 09/17/23 05:40
Sodium 130 mmol/L (135-145) L 09/17/23 05:40
Potassium 3.3 mmol/L (3.5-5.1) L 09/17/23 05:40
Chloride 98 mmol/L (98-107) 09/17/23 05:40
Carbon Dioxide 16 mmol/L (22-30) L 09/17/23 05:40
BUN 56 mg/dl (7-17) H 09/17/23 05:40
Creatinine 2.9 mg/dL (0.6-1.0) H 09/17/23 05:40
eGFR 19.73 09/17/23 05:40
Glucose 122 mg/dl (70-99) H 09/17/23 05:40
Calcium 8.1 mg/dl (8.4-10.2) L 09/17/23 05:40
Phosphorus 5.9 mg/dl (2.5-4.5) H 09/17/23 11:52
Grq-Q-Dylirxuvhmi Pept 9650 pg/ml 09/17/23 05:40
Physical Exam
General: Awake
HEENT: PERRL, EOMI and Hearing Normal
Respiratory: Other (coarse breath sounds bilaterally)
Cardiac: S1/S2, Murmur and Other (tachy)
Breast: Deferred by me
Abdomen: Soft, Nontender and Nondistended
Rectal: Deferred by Provider
Musculoskeletal: No Edema
Skin: No Rash
Neuro: Other (confused, unable to follow commands)
Assessment/Plan
-
Assessment:
JAMES
Hyponatremia
Mixed HAGMA and NAGMA
hypokalemia
COVID 19
pHTN
Shock likely 2/2 to COVID 19+ sepsis + hypovolemia 2/2 to diarrhea
?shock liver
Plan:
- patient with significant acidosis, hyponatremia and JAMES likely in the setting of shock and hypovolemia (likely ATN)
- i will plan to change her fluids from LR to sodium bicarbonate to assist with these derangements
- continue NaHCO3 at 100cc/hr
- please replete her K as needed for goal >4
- Cr baseline around 0.7 --> 2.9 most recently.
- please continue to trend BMPs
- cefepime dosing adjusted for Cr Cl. please continue to renally dose all medications
- maintain MAP >65
- please avoid further nephrotoxins
Data Reviewed
-
Radiology: Image Personally Visualized and interpreted
Labs: Labs Reviewed by me and Discussed with Nurse
Old Records: Reviewed
Critical Care Time (in minutes): 31
--- NOTE | 2023-09-17 13:13 | W.PN.HOSP.TC ---
Today's Communication/Plan
-
See note
Await transfer to [facility]
Assessment / Plan
Assessment / Plan
#Septic shock likely secondary to COVID-19
#Acute hypoxic respiratory insufficiency likely secondary to above
#Lactic acidosis
Agree with starting patient on Decadron
Remdesivir contraindicated with the setting of elevated creatinine
Patient was started on Molnupriavir
Follow-up on the culture data
If cultures are negative can consider de-escalating antibiotics
In the interim continue with broad-spectrum antibiotics of Vanco and cefepime
Monitor fever and WBC curve
Continue with precaution droplet
Appreciate ID recs
#Shock likely sepsis versus hypovolemia in the setting of severe diarrhea and diuretics versus cardiogenic in the setting of severe right ventricular failure
Continue with Levophed
Treatment with antibiotics as above
Treatment with antiviral as above
#Severe pulmonary hypertension with right sided heart failure
Patient on multiple medication macitentan, sildenafil and IV Treprostinil
Patient primary pulmonary hypertension specialist Dr. Callahan
Patient creatinine was 0.8 in June/2023
Hold further diuretics until evaluation and improvement in creatinine
Avoid severe IVF resuscitation
If needed continue with Levophed and or start vasopressin if needed
proBNP elevated
Check echocardiogram.
#Toxic metabolic encephalopathy likely in the setting of shock versus acute liver failure
Patient started on Precedex
Once hemodynamically stable can consider brain imaging
If no improvement mentation check ammonia level
#Acute hepatitis/transaminitis
#Elevated bilirubin
#Severe coagulopathy with elevated INR
#INR was noted be 3.68
Direct bilirubin elevated
Ultrasound abdomen Doppler was negative for acute obstruction
Patient with severe right sided heart failure probably leading to severe hepatic congestion
Plan to start extensive workup however plan to transfer patient to [facility] and further workup can be initiated at Tertiary center.
#Hyponatremia likely secondary dehydration versus recent uptitration of diuretics
Avoid hypotonic saline
Trend for now
#Hypokalemia
Replete and monitor
#Acute kidney injury versus acute kidney injury on chronic kidney disease versus chronic kidney disease
#Non on anion gap acidosis secondary to diarrhea
#Status post aggressive IV fluid resuscitation in the ER and on admission
Per discussion with pulmonary hypertension specialist avoid aggressive IV fluid
Trend creatinine
Monitor urinary output
May require Hernández catheter if hospitalization prolonged
Repeat CMP later today
E[employer] Mechanic has been consulted
#Hyperphosphatemia
Likely in the setting of elevated creatinine
Severe anxiety
Iron deficiency anemia
DVT ppx-scds
Updated patient's spouse over the phone in detail. Dave agree and gave consent to transfer patient [facility].
Discussed case in detail with octave board racker and precipitator supervisor
Discussed with RN
Patient with 2 PIV
Case was discussed in detail with Dr. Callahan(patient primary pulmonary hypertension doctor) And octave board racker at [facility] Dr. Malik and they agreed and accepted patient to be transferred to ICU level of care under octave board racker service. Patient has
a bed awaiting transportation arrangements.
Cm was informed.
Total Critical Care Time_ 75 minutes. I was immediately available to the patient and staff. I personally examined, reviewed labs, diagnostic images/reports, interpretations, treatment plans, discussed patient care with other providers and family
or caregivers (if patient is unable to make decisions), entered orders as appropriate and documented the medical record.
Anticipated Discharge: > 48 hours
Subjective/Interval History
-
Date of Service: September 17, 2023
Patient was seen in the ER
Patient was anxious and reported high flow nasal cannula
Patient was placed on 3 L of oxygen with O2 sats 93%
Patient was hypotensive was started on Levophed
Patient states of shortness of breath
Patient denies any abdominal pain
States of diarrhea and hypotension at home
States she was recently told to increase Aldactone was started on furosemide
Objective Data
-
Labs:
Laboratory Results
09/17/23 09/17/23 09/17/23
05:40 08:53 10:21
WBC 14.4 H
Hgb 12.6
Hct 35.4 L
Plt Count 113 L
PT 36.6 H
INR 3.68
Sodium 130 L
Potassium 3.3 L
Chloride 98
Carbon Dioxide 16 L
BUN 56 H
Creatinine 2.9 H
Glucose 122 H
Calcium 8.1 L
Total Bilirubin 6.8 H Cancelled
AST 6029 H* Cancelled
ALT 3070 H* Cancelled
Alkaline Phosphatase 113 Cancelled
09/17/23
17:00
WBC
Hgb
Hct
Plt Count
PT Pending
INR Pending
Sodium
Potassium
Chloride
Carbon Dioxide
BUN
Creatinine
Glucose
Calcium
Total Bilirubin Pending
AST Pending
ALT Pending
Alkaline Phosphatase Pending
Vital Signs:
Vital Signs
Temp Pulse Resp BP Pulse Ox
96.3 F L 116 35 69/57 92
09/17/23 12:00 09/17/23 09:30 09/17/23 09:00 09/17/23 09:33 09/17/23 09:33
Physical Exam
-
General: Appears in Distress and Appears Chronically Ill
HEENT: Normocephalic, Atraumatic, Moist Mucous Membranes and Oxygen (3l)
Respiratory: Rhonchi
Cardiac: Regular Rhythm and S1/S2; Negative Murmur, Rub or Gallop
GI: Soft, Nontender, Nondistended and Normal Bowel Sounds; Negative Organomegaly
Rectal: Deferred by Provider
Musculoskeletal: No Clubbing, No Cyanosis and No Edema
Skin: Negative Rash
Neuro: Awake and Nonfocal/Grossly Intact
Psych: Calm
[2023-09-17] MEDS: VANCOCIN 275 MG IV (13:20)
[2023-09-17] MEDS: XOPENEX HFA 45 MCG INHALER 1 PUFF INH (13:43)
[2023-09-17] MEDS: ATROVENT HFA INHALER 1 PUFF INH (13:43)
[2023-09-17 14:23] LABS: Acetaminophen < 10 ug/ml (10-30)
[2023-09-17 14:44] LABS: TSH Reflex To Free T4 1.58 uIU/ml (0.47-4.68)
--- NOTE | 2023-09-17 14:45 | PTCARENOTE ---
Discharge facilitated to [facility]. RN report given to Margaret at [facility] founders [employer] picked up by [place] flight crew RNs.
--- NOTE | 2023-09-17 15:26 | W.DCSUMMARY ---
Discharge Summary
Discharge Data
Date of Admission: 09/17/23
Date of Discharge: 09/17/23
-
Pending Results: Yes (f/u at [facility] )
Hospital Course
43 female past medical history of severe pulmonary hypertension, right sided heart failure, GERD, iron deficiency anemia, anxiety who is presenting from home with complaints of hypotension, weakness and diarrhea. Patient was found to be hypotensive
en route and in the ER. Patient received IV fluid resuscitation with IV fluid bolus. Patient upon admission underwent lab testing which showed patient had elevated WBC count. Patient was found to be COVID-19 positive. Patient abnormal CMP with
low sodium, potassium and elevated creatinine. Patient was also found to noN anion gap metabolic acidosis. Patient was found to be in septic shock and required Levophed. Patient was started on steroids. Infectious disease was consulted and
patient was started on antivirals. Patient was also started on broad-spectrum antibiotics with vancomycin and cefepime. Patient was admitted to medical ICU. Patient with severe pulmonary hypertension with severe right-sided heart failure and on
IV infusion Treprostinil. Per patient it causes hypotension and diarrhea. Patient was found to have a severe liver failure with elevation of AST and ALT and bilirubin. Patient had abnormal coagulopathy with severely elevated INR. IV fluids was
discontinued. Patient was maintained on Levophed. Patient also with altered mental status and severe agitation and required initiation of Precedex drip. Patient with extremely complex pathophysiology and requires her pulmonary hypertension
medication to be continued without any interruption which was most likely cannot be interrupted unless severely contraindicated. Patient case was discussed with the primary pulmonary hypertension specialist Dr. Callahan and Dr. Malik who stated
that patient need to be at a tertiary care center [facility] and they gladly accpted patient on there service to medical ICU. Patient was transferred via [facility]. Patient who gave consent for transfer was
also informed of the transfer timing and he was appreciative of updates.
Discharge Plan
-
Patient Disposition: Acute Care Hospital
Discharge Orders:
Discharge Patient (As Directed); Ordered 09/17/23
Ordered By: Glenn Dangelo
Discharge Date and Time
Discharge Date/Time: 09/17/23 15:07
[2023-09-19 18:49] LABS: Hepatitis B Surface Antigen Negative (Negative)
[2023-09-19 19:07] LABS: Hepatitis B Core Ab, Total Negative (Negative); Hepatitis B Surface Antibody Positive; Hepatitis C Antibody Negative (Negative)
[2023-09-19 20:12] LABS: Hepatitis A Antibody, Total Negative (Negative)
== END 2023-09-17 15:07 | disposition short-term general hospital (02) | DRG 871 ==
LOC: ICU 06:45
PROVIDERS: Nurse Practitioner Family; ADMITTING PHYSICIAN Internal Medicine; ATTENDING PHYSICIAN Hospitalist; CONSULT PHYSICIAN Internal Medicine Critical Care Medicine; CONSULT PHYSICIAN Internal Medicine Gastroenterology; CONSULT PHYSICIAN Internal Medicine Infectious Disease; CONSULT PHYSICIAN Student in an Organized Health Care Education/Training Program; EMERGENCY PHYSICIAN Emergency Medicine; FAMILY PHYSICIAN Internal Medicine Critical Care Medicine
DX: A41.89 Other specified sepsis (principal); G92.8 Other toxic encephalopathy; N17.0 Acute kidney failure with tubular necrosis; U07.1 COVID-19; R65.21 Severe sepsis with septic shock; K72.00 Acute and subacute hepatic failure without coma; I27.0 Primary pulmonary hypertension; Q24.0 Dextrocardia; R18.8 Other ascites; E87.1 Hypo-osmolality and hyponatremia; E87.20 Acidosis, unspecified; D68.9 Coagulation defect, unspecified; K76.0 Fatty (change of) liver, not elsewhere classified; D50.9 Iron deficiency anemia, unspecified; D69.6 Thrombocytopenia, unspecified; K76.1 Chronic passive congestion of liver; R06.89 Other abnormalities of breathing; K21.9 Gastro-esophageal reflux disease without esophagitis; R19.7 Diarrhea, unspecified; E83.39 Other disorders of phosphorus metabolism; R09.02 Hypoxemia; E86.0 Dehydration; I50.812 Chronic right heart failure; F41.9 Anxiety disorder, unspecified; E87.6 Hypokalemia; Z88.8 Allergy status to other drugs, medicaments and biological substances; Z91.018 Allergy to other foods; Z91.013 Allergy to seafood; Z85.118 Personal history of other malignant neoplasm of bronchus and lung
CPT/HCPCS: 71046; 76700; 80053; 80143; 82248; 83605; 83735; 83880; 84100; 84443; 84484; 85025; 85610; 86704; 86706; 86708; 86709; 86803; 87040; 87340; 87502; 87641; 87811; 93005; 93975; 94640; 96365; 96366; 96367; 99291